=== PATIENT | female | born 1960 | race Caucasian/White ===

== ENCOUNTER 2019-10-21 07:03 | Inpatient (IN) | payer OTHER ==
[2019-10-21] MEDS: Acetaminophen TAB* 325 MG PO PRN (15:39)
[2019-10-21] MEDS ORDERED: Calcium Carbonate CHEW TAB* 500 MG (TUMS) PO PRN (19:04)
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
[2019-10-21] MEDS: Docusate CAP* 100 MG PO SCH (21:39)
[2019-10-21] MEDS: Enoxaparin(*) 30 MG/0.3 ML SYR SUBCUT SCH (21:39)
[2019-10-21] MEDS: oxyCODONE TAB* 5 MG TAB PO PRN (21:41)
[2019-10-22 05:39] LABS: ABS Eosinophils 0.2 10^3/ul (0-0.6); ABS Lymphocytes 0.9 10^3/ul (1.0-4.8); ABS Monocytes 0.3 10^3/ul (0-0.8); ABS Neutrophils 2.6 10^3/ul (1.5-7.7); Hematocrit 24 % (35-47); Hemoglobin 8.5 g/dL (12.0-16.0); Lymphocyte % 22.6 %; Mean Corpuscular HGB Conc 35 g/dL (31-36); Mean Corpuscular Hemoglobin 32 pg (27-31); Mean Corpuscular Volume 92 fL (80-97); Mean Platelet Volume 9.2 fL (7.4-10.4); Nucleated Red Blood Cells % 0.1; Platelet Count 116 10^3/uL (150-450); Red Blood Count 2.65 10^6 /uL (3.70-4.87); Red Cell Distribution Width 15 % (10-15); White Blood Count 4.1 10^3/uL (3.5-10.8)
[2019-10-22] MEDS: Levothyroxine TAB* 25 MCG TAB PO SCH (05:39)
[2019-10-22 06:00] LABS: Albumin 3.2 g/dL (3.2-5.2); Albumin/Globulin Ratio 1.1 (1-3); BUN/Creatinine Ratio 26.8 (8-20); Calcium 8.3 mg/dL (8.6-10.3); EGFR African American 133.6 (>60); EGFR Non-African American 110.4 (>60); Globulin 2.8 g/dL (2-4); Potassium 3.8 mmol/L (3.5-5.0)
[2019-10-22] MEDS: Acetaminophen TAB* 325 MG PO PRN ×2 (07:50→15:20)
[2019-10-22] MEDS: Docusate CAP* 100 MG PO SCH ×2 (07:51→20:08)
[2019-10-22] MEDS: Enoxaparin(*) 30 MG/0.3 ML SYR SUBCUT SCH ×2 (07:51→20:08)
[2019-10-22] MEDS ORDERED: Influenza VAC *QUAD* 2019-20* 0.5 ML SYRINGE IM ONE (09:00)
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
--- NOTE | 2019-10-22 12:26 | PMRUTEAM ---
PMRU: Team Meeting Current Status: Physical Therapy: Current Status Current Rolling Status Not attempted Current Supine <-> Sit Status Partial/Moderate Current Sit <-> Stand Status Partial/Moderate Current Bed <-> Chair Status Dependent Transfer/Bed Mobility Rolling Walker,Slide Board Recommended Devices Current Picking Up Object Dependent Status Current Car Transfer Status Not attempted due to Current Ambulation Assistance Dependent Status Ambulation Assistive Device Rolling Walker Current Ambulation Distance 5' Ambulation Comment ModAx2 Current Wheelchair Propulsion Dependent Ability Status Wheelchair Distance (ft) 50' Current Stair Climbing Status Not attempted Current Curb Assistance Status Dependent Curb Assistive Devices Rolling Walker Objective Comments Pt's present throughout session. Occupational Therapy: Current Status Current Upper Body Dressing Setup or Clean-up Assist Status Current Lower Body Dressing Total assist Status Current Footwear Status Total assist Current Bathing Status Not attempted Current Grooming Status Setup or Clean-up Assist Current Toileting Status Total assist Current Toilet Transfer Status Total assist Current Eating Status Setup or Clean-up Assist Instrumental ADL Spouse available to assist with IADLs. Nursing: Current Status Skin Deviations [bilateral Other lower pelvis] Skin Deviations [Generalized] Bruise Skin Deviation Description [ pin site bilateral lower pelvis] Skin Deviation Description [ bilateral arms , proximal thighs and pelvis Generalized] Rec Therapy: Current Status Summary of Assessment and Pt was sitting up in bed when meeting with staff. Clinical Impression Pt was open and engaged in conversation about leisure interests and involvement. Pt, with assistance from her , was able to identify several leisure interests. Pt is aware of services and is open to pet therapy and continued leisure visits. Pt also identified interest in independent leisure materials such as books and coloring materials, which will be provided to her. Treatment Goals Pt will engage in leisure activities while on the unit as tolerated. Treatment Plan Provide recreation therapy services and encourage involvement. Social Work: Current Status Discharge Plan Return home with home care svs and family support Potential for Family Training pt's family is involved and supportive Anticipated Discharge Home Destination Anticipated Discharge needs a ramp Destination Comment Discharge With home care svs and family support Goals: Physical Therapy: Goals Goals to Be Accomplished in ( 21-24 Days) Goal: Rolling Assistance Independent Goal Supine <-> Sit Status Independent Goal Sit <-> Stand Status Supervision/Touching Goal Bed <-> Chair Status Supervision/Touching Transfer/Bed Mobility Rolling Walker,EZ Stand,Slide Board or least restrictive device Recommended Devices Goal: Picking Up Object Supervision/Touching Goal: Car Transfer Status Supervision/Touching Goal: Ambulation Assistance Supervision/Touching Ambulation Assistive Devices Standard Walker Ambulation Distance (ft) 150' Goal: Wheelchair Propulsion Independent Ability Wheelchair Distance (ft) 150' Goal: Stairs Assistance Supervision/Touching Stairs Recommended Devices Two Rails Number of Stairs 4, Ramp recommend Goal: Curb Assistance Supervision/Touching Goal: Home Exercise Program Independent Assistance Occupational Therapy: Goals Goals to be Completed in (Days 30 ) Goal Upper Body Dressing Setup or Clean-up Assist Routine Goal Lower Body Dressing Setup or Clean-up Assist Routine Goal Footwear Status Setup or Clean-up Assist Goal Bathing Routine (OT) Supervision/Touching Goal Grooming Routine Setup or Clean-up Assist Goal Toilet Hygiene and Setup or Clean-up Assist Clothing Management Routine Goal Toilet Transfer Routine Setup or Clean-up Assist Goal Functional Transfers for Setup or Clean-up Assist ADL Goal Feeding Routine Independent Social Work: Goals Discharge Plan Return home with home care svs and family support Potential for Family Training pt's family is involved and supportive Anticipated Discharge Home Destination Anticipated Discharge needs a ramp Destination Comment Discharge With home care svs and family support Care Plan: Care Plan DVT Prophylaxis- Improve/Maintain Start: 10/21/19 13:12 Freq: [id number] Status: Active Target: 11/04/19 Protocol: Activity Type Activity Date Activity User E-Sign Co-Sign Detail Recorded Client Recorded Date Recorded By Document 10/22/19 07:00 [id number] 10/22/19 08:54 [id number] 10/22/19 07:00 PMRU Outcome: DVT Prophylaxis Current DVT Outcome/Goals Remains Free of DVT Complies with DVT Prophylaxis /Treatment Demonstrates Knowledge of DVT Prevention/ Treatment TEDS Stockings on Every AM, Off at HS Progression Toward Outcome/Goals Progressing Discharge Planning - Improve/Maintain Start: 10/21/19 13:12 Freq: DAILY@[id number] Status: Active Target: 11/04/19 Protocol: Activity Type Activity Date Activity User E-Sign Co-Sign Detail Recorded Client Recorded Date Recorded By Document 10/22/19 07:00 [id number] 10/22/19 08:54 [id number] 10/22/19 07:00 PMRU Outcome: Discharge Planning Update Patient Family Yes Current Discharge Planning Outcome/Goals Demonstrates Understanding of Discharge Plan Homecare Referral - See Comment Progression Toward Outcome/Goals Progressing Education-Improve/Maintain Start: 10/21/19 13:12 Freq: DAILY@[id number],1900 Status: Active Target: 11/04/19 Protocol: Activity Type Activity Date Activity User E-Sign Co-Sign Detail Recorded Client Recorded Date Recorded By Document 10/22/19 07:00 [id number] 10/22/19 08:54 [id number] 10/22/19 07:00 PMRU Outcome: Education Current Education Outcome/Goals Demonstrate/ Verbalize Understanding of Written Discharge Instructions Demonstrates Skills Encourage Questions Progression Toward Outcome/Goals Progressing /GI-Improve/Maintain Start: 10/21/19 13:12 Freq: [id number] Status: Active Target: 11/04/19 Protocol: Activity Type Activity Date Activity User E-Sign Co-Sign Detail Recorded Client Recorded Date Recorded By Document 10/22/19 07:00 [id number] 10/22/19 08:54 [id number] 10/22/19 07:00 PMRU Outcome: Genitourinary/ Gastrointestinal Current Gastrointestinal Outcome/Goals Maintain/ Achieve Bowel Regularity in Accordance with Pt's Baseline Remain Free of Emesis Prevent Constipation Bowel Regularity at Home Laxatives as Ordered Progression Toward Outcome/Goals Progressing Current Genitourinary Outcome/Goals Maintain/ Achieve Adequate Urinary Output Remain Free of Hospital- Acquired UTI Progression Toward Outcome/Goals Progressing Medication Administration Start: 10/21/19 13:12 Freq: DAILY@[id number] Status: Active Target: 11/04/19 Protocol: Activity Type Activity Date Activity User E-Sign Co-Sign Detail Recorded Client Recorded Date Recorded By Document 10/22/19 07:00 [id number] 10/22/19 08:54 [id number] 10/22/19 07:00 PMRU Outcome: Medication Administration Assess Patient Knowledge/Teach Med Yes Education for all Meds Current Manager Reporting Outcome/Goals Patient Independent with Medication Administration at Home Demonstrates Understanding Progression Towards Outcome/Goals Progressing Is Patient Going Home on Lovenox? No Mobility- Improve/Maintain Start: 10/21/19 16:28 Freq: DAILY@[id number],1900 Status: Active Target: 10/22/19 Protocol: Activity Type Activity Date Activity User E-Sign Co-Sign Detail Recorded Client Recorded Date Recorded By Document 10/21/19 16:28 [id number] 10/21/19 16:37 [id number] 10/21/19 16:28 PMRU Outcome: Mobility Physical Therapy Evaluation and Yes Treatment Activity OOB with Assistance Yes WBAT Yes: RLE NWB Yes: LLE TTWB No Device Yes Assistance Yes Patient to be seen 5x/wk for 60-120 min/ Therex day for: Mobility Training Gait Training W/C Mobility Balance Other Other Therapy Comment Discharge training and discharge planning Current Mobility Outcome/Goals Maintain/ Achieve Baseline Mobility Status Improve Mobility Status Demonstrates Proper Use of Assistive Devices Free from Complications of Immobility Progression Toward Outcome/Goals Goal Initiation Bed Mobility Yes: Independent Transfers Yes: Supervision with LRD Gait x ft Yes: 150' with RW, supervision W/C Mobility x ft Yes: 150' independent Up/Down Stairs Yes: ramp to be installed With HEP Yes: independent Pain/Comfort- Improve/Maintain Start: 10/21/19 13:12 Freq: DAILY@ Status: Active Target: 11/04/19 Protocol: Activity Type Activity Date Activity User E-Sign Co-Sign Detail Recorded Client Recorded Date Recorded By Document 10/22/19 07:00 [id number] 10/22/19 08:54 [id number] 10/22/19 07:00 PMRU Outcome: Pain/Comfort Current Pain/Comfort Outcome/Goals Demonstrates Knowledge and Use of Available Comfort Measures Achieves Acceptable Comfort/Pain Level as Determined by Patient/Condit Maintain Comfort Level Allowing Patient to Fully Participate in Rehab Progression Toward Outcome/Goals Progressing Outcome/Goals Met Comment Pt declined pain medication Rec Therapy- Improve/Maintain Start: 10/21/19 15:48 Freq: DAILY@[id number] Status: Active Target: 10/26/19 Protocol: Activity Type Activity Date Activity User E-Sign Co-Sign Detail Recorded Client Recorded Date Recorded By Document 10/21/19 15:49 [id number] 10/21/19 15:49 [id number] 10/21/19 15:49 PMRU Outcome: Recreation Therapy Current Rec Ther Outcome/Goals Complete Rec Therapy Assessment Meet with Patient Regularly for Support Encourage Leisure Involvement Progression Toward Outcome/Goals Goal Initiation Safety- Improve/Maintain Start: 10/21/19 12:05 Freq: DAILY@ Status: Active Target: 11/04/19 Protocol: Activity Type Activity Date Activity User E-Sign Co-Sign Detail Recorded Client Recorded Date Recorded By Document 10/22/19 07:00 [id number] 10/22/19 08:54 [id number] 10/22/19 07:00 PMRU Outcome: Safety Current Safety Outcome/Goals Remain Free of Injury or Harm Cooperates with Safety Measures for Least Restrictive Environment Prevent Falls/ Injury Progression Toward Outcome/Goals Progressing Skin- Improve/Maintain Start: 10/21/19 13:12 Freq: DAILY@ Status: Active Target: 11/04/19 Protocol: Activity Type Activity Date Activity User E-Sign Co-Sign Detail Recorded Client Recorded Date Recorded By Document 10/22/19 07:00 [id number] 10/22/19 08:54 [id number] 10/22/19 07:00 PMRU Outcome: Skin Skin Risk Level No Risk Current Skin Outcome/Goals Maintain/ Improve Skin Integrity Free from Pressure Injury Surgical Incisions Healing Progression Toward Outcome/Goals Progressing - Interdisciplinary Staff Present It Applications Manager/Social Work Staff Present: ALVIN Linder OT Staff Present: Vonnie Jarrett PT Staff Present: Daria Hernandez Medicine Note: Length of Stay: [3 weeks] Anticipated Discharge Destination: Home Tentative Discharge Date: [11/12/2019] Discharged to: [home]
[2019-10-22] MEDS: oxyCODONE TAB* 5 MG TAB PO PRN (21:42)
[2019-10-22] MEDS: Methocarbamol TAB* 500 MG PO PRN (23:47)
[2019-10-23] MEDS: Levothyroxine TAB* 25 MCG TAB PO SCH (04:25)
[2019-10-23 05:13] LABS: ABS Eosinophils 0.2 10^3/ul (0-0.6); ABS Lymphocytes 0.9 10^3/ul (1.0-4.8); ABS Monocytes 0.4 10^3/ul (0-0.8); ABS Neutrophils 2.9 10^3/ul (1.5-7.7); Eosinophil % 3.9 %; Hematocrit 24 % (35-47); Hemoglobin 8.1 g/dL (12.0-16.0); Mean Corpuscular HGB Conc 34 g/dL (31-36); Mean Corpuscular Hemoglobin 31 pg (27-31); Mean Corpuscular Volume 93 fL (80-97); Mean Platelet Volume 9.3 fL (7.4-10.4); Nucleated Red Blood Cells % 0.1; Platelet Count 134 10^3/uL (150-450); Red Cell Distribution Width 15 % (10-15); White Blood Count 4.4 10^3/uL (3.5-10.8)
[2019-10-23] MEDS: Docusate CAP* 100 MG PO SCH ×2 (07:57→20:22)
[2019-10-23] MEDS: Enoxaparin(*) 30 MG/0.3 ML SYR SUBCUT SCH ×2 (07:57→20:23)
[2019-10-23] MEDS: Acetaminophen TAB* 325 MG PO PRN ×3 (07:57→20:40)
[2019-10-23] MEDS: Methocarbamol TAB* 500 MG PO PRN ×3 (07:59→20:40)
[2019-10-23] MEDS ORDERED: Ondansetron ODT TAB* 4 MG SL PRN (09:16)
--- NOTE | 2019-10-23 09:16 | PN ---
Progress Note Date of Service: 10/23/19 Note: STEPHANIE LIN was visited. Nursing and therapy notes read and reviewed. No chest pain, shortness of breath or abdominal pain. Some nausea yesterday. Current Medications: Active Medications Generic Name Dose Route Start Last Admin Trade Name Freq PRN Reason Stop Dose Admin Acetaminophen 650 mg 10/21/19 12:06 10/23/19 07:57 Tylenol Tab* PO 650 mg Q6H PRN Administration MILD PAIN or TEMP > 100.4 Calcium Carbonate 500 mg 10/21/19 19:04 10/21/19 19:17 Tums* PO 500 mg Q4H PRN Administration INDIGESTION Docusate Sodium 100 mg 10/21/19 21:00 10/23/19 07:57 Colace Cap* PO 100 mg BID ASHLEY Administration Enoxaparin Sodium 30 mg 10/21/19 21:00 10/23/19 07:57 Lovenox(*) SUBCUT 30 mg Q12H ASHLEY Administration Levothyroxine Sodium 12.5 mcg 10/22/19 06:00 10/23/19 04:25 Synthroid Tab* PO 12.5 mcg DAILY@0600 ASHLEY Administration Magnesium Hydroxide 30 ml 10/21/19 12:06 Milk Of Magnesia Liq* PO Q6H PRN CONSTIPATION Methocarbamol 750 mg 10/22/19 10:48 10/23/19 07:59 Robaxin Tab* PO 750 mg QID PRN Administration SPASMS - MUSCLE Oxycodone HCl 5 mg 10/21/19 12:10 Roxycodone Tab* PO Q4H PRN PAIN - MODERATE Oxycodone HCl 10 mg 10/21/19 12:11 10/22/19 21:42 Roxycodone Tab* PO 10 mg Q4H PRN Administration PAIN - SEVERE Senna 2 tab 10/21/19 12:06 Senokot 8.6 Mg Tab* PO BEDTIME PRN CONSTIPATION Vital Signs: Vital Signs Temp Pulse Resp BP Pulse Ox 98.7 F 79 12 98/56 96 10/23/19 04:30 10/23/19 04:30 10/23/19 07:59 10/23/19 04:30 10/23/19 04:30 Lab Results: Laboratory Results - last 24 hr 10/23/19 04:22 WBC 4.4 RBC 2.60 L Hgb 8.1 L Hct 24 L MCV 93 MCH 31 MCHC 34 RDW 15 Plt Count 134 L MPV 9.3 Neut % (Auto) 66.0 Lymph % (Auto) 20.0 Pepin % (Auto) 9.7 Eos % (Auto) 3.9 Baso % (Auto) 0.4 Absolute Neuts (auto) 2.9 Absolute Lymphs (auto) 0.9 L Absolute Monos (auto) 0.4 Absolute Eos (auto) 0.2 Absolute Basos (auto) 0.0 Absolute Nucleated RBC 0.0 Nucleated RBC % 0.1 Exam: GEN: no acute distress. alert and appropriate. LUNG: clear to auscultation bilaterally. CV: regular rate and rhythm. ABD: + bowel sounds, soft, non-tender, non-distended. EXT: No edema SKIN: External fixator across pelvis. Pin and pin sites clean and intact. Dressing had scan/minimal serosanguinous staining. NEURO: Sensation intact bilateral LE. Motor 5/5 bilateral toes/ankles. Testing limited in rest of legs due to pain and restrictions, but demonstrates some right knee flex/ext and hip flex. Assessment/Plan: 59yo woman with Left acetabulum, left sacral and bilateral pubic rami fractures. #Pelvic and left hip fracture: External fixator. Pin care. NWB LLE. WBAT RLE. f/ u with Dr. Wallace at [facility] on 11/02. I spoke to Dr. Wallace 10/22/2019 who confirmed that she can take a shower and even get in a chlorinated pool, but no hot tub or bathtub. PT/OT. #Analgesia: tylenol and oxycodone prn. methocarbamol prn for spasms. #Nausea: zofran prn #DVT ppx: lovenox #Acute post-op anemia and thrombocytopenia: s/p 1u pRBCs on acute service 2019 when H/H 6.9/21.5 and platelets 82. Hemoglobin 8.4->8.1 overnight may be in normal variance day to day. Not a precipitous drop. Recheck on Friday. #Low normal blood pressure: may be due to pain medications or dehydration. I gave parameters to notify MD. Encourage po fluids. #Hypothyroidism: levothyroxine #Advanced directives: full code. #Estimated LOS: 11/12/2019 10/23/19 09:12
[2019-10-23] MEDS: Magnesium Hydroxide LIQ* 30 ML UDC PO PRN (18:11)
[2019-10-24] MEDS: oxyCODONE TAB* 5 MG TAB PO PRN ×2 (01:07→22:19)
[2019-10-24] MEDS: Levothyroxine TAB* 25 MCG TAB PO SCH (05:33)
[2019-10-24] MEDS: Docusate CAP* 100 MG PO SCH ×2 (08:13→21:36)
[2019-10-24] MEDS: Acetaminophen TAB* 325 MG PO PRN ×2 (08:13→14:30)
[2019-10-24] MEDS: Methocarbamol TAB* 500 MG PO PRN ×3 (08:14→18:39)
[2019-10-24] MEDS: Enoxaparin(*) 30 MG/0.3 ML SYR SUBCUT SCH ×2 (08:15→21:36)
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
[2019-10-25 04:53] LABS: ABS Eosinophils 0.2 10^3/ul (0-0.6); ABS Lymphocytes 1.1 10^3/ul (1.0-4.8); ABS Monocytes 0.4 10^3/ul (0-0.8); ABS Neutrophils 2.3 10^3/ul (1.5-7.7); Eosinophil % 4.8 %; Hematocrit 24 % (35-47); Hemoglobin 8.2 g/dL (12.0-16.0); Lymphocyte % 26.6 %; Mean Corpuscular HGB Conc 34 g/dL (31-36); Mean Corpuscular Hemoglobin 31 pg (27-31); Mean Corpuscular Volume 93 fL (80-97); Mean Platelet Volume 8.7 fL (7.4-10.4); Nucleated Red Blood Cells % 0.1; Platelet Count 199 10^3/uL (150-450); Red Blood Count 2.62 10^6 /uL (3.70-4.87); Red Cell Distribution Width 16 % (10-15)
[2019-10-25] MEDS: Methocarbamol TAB* 500 MG PO PRN ×2 (05:37→11:34)
[2019-10-25] MEDS: Acetaminophen TAB* 325 MG PO PRN ×2 (05:37→11:35)
[2019-10-25] MEDS: Levothyroxine TAB* 25 MCG TAB PO SCH (05:38)
[2019-10-25] MEDS: Docusate CAP* 100 MG PO SCH ×2 (09:12→20:39)
[2019-10-25] MEDS: Enoxaparin(*) 30 MG/0.3 ML SYR SUBCUT SCH ×2 (09:13→20:40)
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
[2019-10-25] MEDS: oxyCODONE TAB* 5 MG TAB PO PRN (20:43)
[2019-10-26] MEDS: oxyCODONE TAB* 5 MG TAB PO PRN ×3 (02:36→20:52)
[2019-10-26] MEDS: Levothyroxine TAB* 25 MCG TAB PO SCH (06:03)
[2019-10-26] MEDS: Docusate CAP* 100 MG PO SCH ×2 (09:02→20:50)
[2019-10-26] MEDS: Enoxaparin(*) 30 MG/0.3 ML SYR SUBCUT SCH ×2 (09:04→20:59)
[2019-10-26] MEDS: Methocarbamol TAB* 500 MG PO PRN ×2 (09:04→16:57)
[2019-10-26] MEDS: Acetaminophen TAB* 325 MG PO PRN (09:05)
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
[2019-10-27] MEDS: Levothyroxine TAB* 25 MCG TAB PO SCH (05:35)
[2019-10-27] MEDS: Docusate CAP* 100 MG PO SCH ×2 (08:27→20:50)
[2019-10-27] MEDS: Enoxaparin(*) 30 MG/0.3 ML SYR SUBCUT SCH ×2 (08:27→20:53)
[2019-10-27] MEDS: Acetaminophen TAB* 325 MG PO PRN (08:27)
[2019-10-27] MEDS: Methocarbamol TAB* 500 MG PO PRN ×2 (08:29→16:16)
--- NOTE | 2019-10-27 20:04 | PN ---
Progress Note Date of Service: 10/27/19 Note: STEPHANIE LIN was visited. Therapy notes read and reviewed. She has no complaints today other than pain in her legs and pelvis. Current Medications: Active Medications Generic Name Dose Route Start Last Admin Trade Name Freq PRN Reason Stop Dose Admin Acetaminophen 650 mg 10/21/19 12:06 10/27/19 08:27 Tylenol Tab* PO 650 mg Q6H PRN Administration MILD PAIN or TEMP > 100.4 Calcium Carbonate 500 mg 10/21/19 19:04 10/21/19 19:17 Tums* PO 500 mg Q4H PRN Administration INDIGESTION Docusate Sodium 100 mg 10/21/19 21:00 10/27/19 08:27 Colace Cap* PO 100 mg BID ASHLEY Administration Enoxaparin Sodium 30 mg 10/21/19 21:00 10/27/19 08:27 Lovenox(*) SUBCUT 30 mg Q12H ASHLEY Administration Levothyroxine Sodium 12.5 mcg 10/22/19 06:00 10/27/19 05:35 Synthroid Tab* PO 12.5 mcg DAILY@0600 ASHLEY Administration Magnesium Hydroxide 30 ml 10/21/19 12:06 10/23/19 18:11 Milk Of Magnesia Liq* PO 30 ml Q6H PRN Administration CONSTIPATION Methocarbamol 750 mg 10/22/19 10:48 10/27/19 16:16 Robaxin Tab* PO 750 mg QID PRN Administration SPASMS - MUSCLE Ondansetron HCl 4 mg 10/23/19 09:16 Zofran Odt Tab* SL Q6H PRN NAUSEA/VOMITING Oxycodone HCl 5 mg 10/21/19 12:10 10/26/19 14:14 Roxycodone Tab* PO 5 mg Q4H PRN Administration PAIN - MODERATE Oxycodone HCl 10 mg 10/21/19 12:11 10/26/19 20:52 Roxycodone Tab* PO 10 mg Q4H PRN Administration PAIN - SEVERE Senna 2 tab 10/21/19 12:06 Senokot 8.6 Mg Tab* PO BEDTIME PRN CONSTIPATION Vital Signs: Vital Signs Temp Pulse Resp BP Pulse Ox 99.0 F 85 18 113/59 96 10/27/19 16:11 10/27/19 16:11 10/27/19 18:18 10/27/19 16:11 10/27/19 18:19 Exam: GENERAL: no acute distress. alert and appropriate. LUNGS: clear to auscultation bilaterally. HEART: regular rate and rhythm. ABDOMEN: + BS, soft, non-tender, non-distended. EXTREMITIES: No edema SKIN: External fixator across pelvis. Pin and pin sites clean and intact. Dressing had scan/minimal serosanguinous staining. NEUROLOGIC: Sensation intact bilateral LE. Motor 5/5 bilateral toes/ankles. RLE seems fine Assessment/Plan: 59yo woman with Left acetabulum, left sacral and bilateral pubic rami fractures. 1. Pelvic and left acetabular and sacrum fractures: External fixator. Pin care. NWB LLE. WBAT RLE. f/u with Dr. Wallace at [facility] on 11/02. PT/OT. 2. Analgesia: tylenol and oxycodone prn. methocarbamol prn for spasms. 3. Nausea: zofran prn. Getting better 4. DVT prophylaxis: lovenox 5. Acute post-op anemia and thrombocytopenia: s/p 1u pRBCs on acute service 2019. Hb stable. Platelets 199K, normal 6. Hypothyroidism: levothyroxine 7. Advanced directives: full code. 8. Estimated LOS: 11/12/2019 10/27/19 20:04
[2019-10-27] MEDS: oxyCODONE TAB* 5 MG TAB PO PRN (20:50)
[2019-10-27] MEDS: Senna TAB 8.6 mg* TAB PO PRN (20:53)
[2019-10-28] MEDS: Levothyroxine TAB* 25 MCG TAB PO SCH (06:13)
[2019-10-28] MEDS: Docusate CAP* 100 MG PO SCH ×2 (08:58→20:21)
[2019-10-28] MEDS: Enoxaparin(*) 30 MG/0.3 ML SYR SUBCUT SCH ×2 (08:58→20:21)
[2019-10-28] MEDS: Acetaminophen TAB* 325 MG PO PRN (08:59)
[2019-10-28] MEDS: Methocarbamol TAB* 500 MG PO PRN ×2 (09:04→20:22)
--- NOTE | 2019-10-28 18:11 | PN ---
Progress Note Date of Service: 10/28/19 Note: STEPHANIE LIN was visited. Therapy notes read and reviewed. She was able to hop 8 steps today and feels her standing balance is getting better. Had a BM today Current Medications: Active Medications Generic Name Dose Route Start Last Admin Trade Name Freq PRN Reason Stop Dose Admin Acetaminophen 650 mg 10/21/19 12:06 10/28/19 08:59 Tylenol Tab* PO 650 mg Q6H PRN Administration MILD PAIN or TEMP > 100.4 Calcium Carbonate 500 mg 10/21/19 19:04 10/21/19 19:17 Tums* PO 500 mg Q4H PRN Administration INDIGESTION Docusate Sodium 100 mg 10/21/19 21:00 10/28/19 08:58 Colace Cap* PO 100 mg BID ASHLEY Administration Enoxaparin Sodium 30 mg 10/21/19 21:00 10/28/19 08:58 Lovenox(*) SUBCUT 30 mg Q12H ASHLEY Administration Levothyroxine Sodium 12.5 mcg 10/22/19 06:00 10/28/19 06:13 Synthroid Tab* PO 12.5 mcg DAILY@0600 ASHLEY Administration Magnesium Hydroxide 30 ml 10/21/19 12:06 10/23/19 18:11 Milk Of Magnesia Liq* PO 30 ml Q6H PRN Administration CONSTIPATION Methocarbamol 750 mg 10/22/19 10:48 10/28/19 09:04 Robaxin Tab* PO 750 mg QID PRN Administration SPASMS - MUSCLE Ondansetron HCl 4 mg 10/23/19 09:16 Zofran Odt Tab* SL Q6H PRN NAUSEA/VOMITING Oxycodone HCl 5 mg 10/28/19 14:23 Roxycodone Tab* PO Q4H PRN PAIN - MODERATE Oxycodone HCl 10 mg 10/28/19 14:23 Roxycodone Tab* PO Q4H PRN PAIN - SEVERE Senna 2 tab 10/21/19 12:06 10/27/19 20:53 Senokot 8.6 Mg Tab* PO 2 tab BEDTIME PRN Administration CONSTIPATION Vital Signs: Vital Signs Temp Pulse Resp BP Pulse Ox 98.7 F 82 16 95/56 100 10/28/19 16:00 10/28/19 16:00 10/28/19 16:10 10/28/19 16:00 10/28/19 16:00 Exam: GENERAL: no acute distress. alert and appropriate. LUNGS: clear to auscultation bilaterally. HEART: regular rate and rhythm. ABDOMEN: + BS, soft, non-tender, non-distended. EXTREMITIES: No edema SKIN: External fixator across pelvis. Pin and pin sites clean and intact. Dressing had scan/minimal serosanguinous staining. NEUROLOGIC: Sensation intact bilateral LE. Motor 5/5 bilateral toes/ankles. RLE seems fine Assessment/Plan: 59yo woman with Left acetabulum, left sacral and bilateral pubic rami fractures. 1. Pelvic and left acetabular and sacrum fractures: External fixator. Pin care. NWB LLE. WBAT RLE. f/u with Dr. Wallace at [facility] on 11/02. PT/OT. 2. Analgesia: tylenol and oxycodone prn. methocarbamol prn for spasms. 3. Nausea: zofran prn. Getting better 4. DVT prophylaxis: lovenox 5. Acute post-op anemia and thrombocytopenia: s/p 1u pRBCs on acute service 2019. Hb stable. Platelets 199K, normal 6. Hypothyroidism: levothyroxine 7. Advanced directives: full code. 8. Estimated LOS: 11/12/2019 10/28/19 18:11
[2019-10-28] MEDS: oxyCODONE TAB* 5 MG TAB PO PRN (22:02)
[2019-10-29 04:28] LABS: ABS Eosinophils 0.2 10^3/ul (0-0.6); ABS Lymphocytes 1.6 10^3/ul (1.0-4.8); ABS Monocytes 0.4 10^3/ul (0-0.8); ABS Neutrophils 3.1 10^3/ul (1.5-7.7); Eosinophil % 4.2 %; Hematocrit 24 % (35-47); Hemoglobin 8.2 g/dL (12.0-16.0); Lymphocyte % 29.8 %; Mean Corpuscular HGB Conc 34 g/dL (31-36); Mean Corpuscular Hemoglobin 32 pg (27-31); Mean Corpuscular Volume 93 fL (80-97); Mean Platelet Volume 8.1 fL (7.4-10.4); Nucleated Red Blood Cells % 0.1; Platelet Count 311 10^3/uL (150-450); Red Cell Distribution Width 16 % (10-15); White Blood Count 5.3 10^3/uL (3.5-10.8)
[2019-10-29 04:38] LABS: Albumin/Globulin Ratio 0.9 (1-3); BUN/Creatinine Ratio 16.1 (8-20); Calcium 8.5 mg/dL (8.6-10.3); EGFR African American 118.8 (>60); EGFR Non-African American 98.2 (>60); Globulin 3.2 g/dL (2-4); Total Bilirubin 0.7 mg/dL (0.2-1.0); Total Protein 6.2 g/dL (6.4-8.9)
[2019-10-29] MEDS: Levothyroxine TAB* 25 MCG TAB PO SCH (06:33)
[2019-10-29] MEDS: Acetaminophen TAB* 325 MG PO PRN ×2 (08:00→21:49)
[2019-10-29] MEDS: Methocarbamol TAB* 500 MG PO PRN ×3 (08:01→21:50)
[2019-10-29] MEDS: Docusate CAP* 100 MG PO SCH ×2 (09:20→21:49)
[2019-10-29] MEDS: Enoxaparin(*) 30 MG/0.3 ML SYR SUBCUT SCH ×2 (09:20→21:50)
--- NOTE | 2019-10-29 09:21 | PN ---
Progress Note Date of Service: 10/29/19 Note: STEPHANIE LIN was visited. Nursing and therapy notes read and reviewed. No chest pain, shortness of breath or abdominal pain. As she has been working on short distance ambulation with PT she has had more aching in her right hip area. She is thinking about trying to wean off night oxycodone. Current Medications: Active Medications Generic Name Dose Route Start Last Admin Trade Name Freq PRN Reason Stop Dose Admin Acetaminophen 650 mg 10/21/19 12:06 10/29/19 08:00 Tylenol Tab* PO 650 mg Q6H PRN Administration MILD PAIN or TEMP > 100.4 Calcium Carbonate 500 mg 10/21/19 19:04 10/21/19 19:17 Tums* PO 500 mg Q4H PRN Administration INDIGESTION Docusate Sodium 100 mg 10/21/19 21:00 10/28/19 20:21 Colace Cap* PO 100 mg BID ASHLEY Administration Enoxaparin Sodium 30 mg 10/21/19 21:00 10/28/19 20:21 Lovenox(*) SUBCUT 30 mg Q12H ASHLEY Administration Levothyroxine Sodium 12.5 mcg 10/22/19 06:00 10/29/19 06:33 Synthroid Tab* PO 12.5 mcg DAILY@0600 ASHLEY Administration Magnesium Hydroxide 30 ml 10/21/19 12:06 10/23/19 18:11 Milk Of Magnesia Liq* PO 30 ml Q6H PRN Administration CONSTIPATION Methocarbamol 750 mg 10/22/19 10:48 10/29/19 08:01 Robaxin Tab* PO 750 mg QID PRN Administration SPASMS - MUSCLE Ondansetron HCl 4 mg 10/23/19 09:16 Zofran Odt Tab* SL Q6H PRN NAUSEA/VOMITING Oxycodone HCl 5 mg 10/28/19 14:23 Roxycodone Tab* PO Q4H PRN PAIN - MODERATE Oxycodone HCl 10 mg 10/28/19 14:23 10/28/19 22:02 Roxycodone Tab* PO 10 mg Q4H PRN Administration PAIN - SEVERE Senna 2 tab 10/21/19 12:06 10/27/19 20:53 Senokot 8.6 Mg Tab* PO 2 tab BEDTIME PRN Administration CONSTIPATION Vital Signs: Vital Signs Temp Pulse Resp BP Pulse Ox 98.4 F 70 12 101/54 95 10/29/19 04:20 10/29/19 04:20 10/29/19 08:01 10/29/19 05:10 10/29/19 04:20 Lab Results: Laboratory Results - last 24 hr 10/29/19 10/29/19 04:14 04:14 WBC 5.3 RBC 2.60 L Hgb 8.2 L Hct 24 L MCV 93 MCH 32 H MCHC 34 RDW 16 H Plt Count 311 MPV 8.1 Neut % (Auto) 57.8 Lymph % (Auto) 29.8 Ware % (Auto) 7.8 Eos % (Auto) 4.2 Baso % (Auto) 0.4 Absolute Neuts (auto) 3.1 Absolute Lymphs (auto) 1.6 Absolute Monos (auto) 0.4 Absolute Eos (auto) 0.2 Absolute Basos (auto) 0.0 Absolute Nucleated RBC 0.0 Nucleated RBC % 0.1 Sodium 136 Potassium 4.0 Chloride 106 Carbon Dioxide 24 Anion Gap 6 BUN 10 Creatinine 0.62 Est GFR ( Amer) 118.8 Est GFR (Non-Af Amer) 98.2 BUN/Creatinine Ratio 16.1 Glucose 95 Calcium 8.5 L Total Bilirubin 0.70 AST 13 ALT 11 Alkaline Phosphatase 99 Total Protein 6.2 L Albumin 3.0 L Globulin 3.2 Albumin/Globulin Ratio 0.9 L Exam: GENERAL: no acute distress. alert and appropriate. LUNGS: clear to auscultation bilaterally. HEART: regular rate and rhythm. ABDOMEN: + BS, soft, non-tender, non-distended. EXTREMITIES: No edema SKIN: External fixator across pelvis. Pin sites clean and intact. [place] to left hip intact. NEUROLOGIC: Sensation intact bilateral LE. Motor 5/5 bilateral toes/ankles. RLE knee and hip motor testing limited by pain. Assessment/Plan: 59yo woman with Left acetabulum, left sacral and bilateral pubic rami fractures. 1. Pelvic and left acetabular and sacrum fractures: External fixator. Pin care. NWB LLE. WBAT RLE. f/u with Dr. Wallace at [facility] on 11/02. PT/OT. 2. Analgesia: tylenol and oxycodone prn. methocarbamol prn for spasms. 3. Nausea: zofran prn. 4. DVT prophylaxis: lovenox. Eventually will need to learn self administration. 5. Acute post-op anemia and thrombocytopenia: thrombocytopenia reasolvd. s/p 1u pRBCs on acute service 10/19/2019. Hb stable. 6. Hypothyroidism: levothyroxine 7. Advanced directives: full code. 8. Estimated LOS: 11/12/2019 10/29/19 09:21
[2019-10-30] MEDS: oxyCODONE TAB* 5 MG TAB PO PRN ×2 (02:32→22:31)
[2019-10-30] MEDS: Levothyroxine TAB* 25 MCG TAB PO SCH (05:35)
[2019-10-30] MEDS: Enoxaparin(*) 30 MG/0.3 ML SYR SUBCUT SCH ×2 (08:18→22:33)
[2019-10-30] MEDS: Acetaminophen TAB* 325 MG PO PRN ×2 (08:21→15:22)
[2019-10-30] MEDS: Docusate CAP* 100 MG PO SCH ×2 (08:21→22:31)
[2019-10-30] MEDS: Methocarbamol TAB* 500 MG PO PRN ×2 (08:23→15:20)
--- NOTE | 2019-10-30 10:06 | PN ---
Progress Note Date of Service: 10/30/19 Note: STEPHANIE LIN was visited. Nursing and therapy notes read and reviewed. No chest pain, shortness of breath or abdominal pain. She was able to fall asleep without oxycodone last night, but took it in the middle of the night when she was aching after transfer to [facility]. Current Medications: Active Medications Generic Name Dose Route Start Last Admin Trade Name Freq PRN Reason Stop Dose Admin Acetaminophen 650 mg 10/21/19 12:06 10/30/19 08:21 Tylenol Tab* PO 650 mg Q6H PRN Administration MILD PAIN or TEMP > 100.4 Calcium Carbonate 500 mg 10/21/19 19:04 10/21/19 19:17 Tums* PO 500 mg Q4H PRN Administration INDIGESTION Docusate Sodium 100 mg 10/21/19 21:00 10/30/19 08:21 Colace Cap* PO 100 mg BID ASHLEY Administration Enoxaparin Sodium 30 mg 10/21/19 21:00 10/30/19 08:18 Lovenox(*) SUBCUT 30 mg Q12H ASHLEY Administration Levothyroxine Sodium 12.5 mcg 10/22/19 06:00 10/30/19 05:35 Synthroid Tab* PO 12.5 mcg DAILY@0600 ASHLEY Administration Magnesium Hydroxide 30 ml 10/21/19 12:06 10/23/19 18:11 Milk Of Magnesia Liq* PO 30 ml Q6H PRN Administration CONSTIPATION Methocarbamol 750 mg 10/22/19 10:48 10/30/19 08:23 Robaxin Tab* PO 750 mg QID PRN Administration SPASMS - MUSCLE Ondansetron HCl 4 mg 10/23/19 09:16 Zofran Odt Tab* SL Q6H PRN NAUSEA/VOMITING Oxycodone HCl 5 mg 10/28/19 14:23 Roxycodone Tab* PO Q4H PRN PAIN - MODERATE Oxycodone HCl 10 mg 10/28/19 14:23 10/30/19 02:32 Roxycodone Tab* PO 10 mg Q4H PRN Administration PAIN - SEVERE Senna 2 tab 10/21/19 12:06 10/27/19 20:53 Senokot 8.6 Mg Tab* PO 2 tab BEDTIME PRN Administration CONSTIPATION Vital Signs: Vital Signs Temp Pulse Resp BP Pulse Ox 98 F 74 18 94/54 95 10/30/19 05:27 10/30/19 05:27 10/30/19 08:23 10/30/19 06:10 10/30/19 08:00 Exam: GENERAL: no acute distress. alert and appropriate. LUNGS: clear to auscultation bilaterally. HEART: regular rate and rhythm. ABDOMEN: + BS, soft, non-tender, non-distended. EXTREMITIES: No edema SKIN: External fixator across pelvis. Pin sites clean and intact. [place] to left hip intact. NEUROLOGIC: Sensation intact bilateral LE. Motor 5/5 bilateral toes/ankles. RLE knee and hip motor testing limited by pain. Assessment/Plan: 59yo woman with Left acetabulum, left sacral and bilateral pubic rami fractures. 1. Pelvic and left acetabular and sacrum fractures: External fixator. Pin care. NWB LLE. WBAT RLE. f/u with Dr. Wallace at [facility] on 11/02. PT/OT. 2. Analgesia: tylenol and oxycodone prn. methocarbamol prn for spasms. 3. Nausea: zofran prn. 4. DVT prophylaxis: lovenox. Teach self administration or train her . 5. Acute post-op anemia and thrombocytopenia: thrombocytopenia reasolvd. s/p 1u pRBCs on acute service 10/19/2019. Hb stable. 6. Hypothyroidism: levothyroxine 7. Advanced directives: full code. 8. Estimated LOS: 11/12/2019 10/30/19 10:05
[2019-10-31] MEDS: oxyCODONE TAB* 5 MG TAB PO PRN ×2 (02:38→20:50)
[2019-10-31] MEDS: Levothyroxine TAB* 25 MCG TAB PO SCH (06:14)
[2019-10-31] MEDS: Acetaminophen TAB* 325 MG PO PRN ×2 (08:23→15:34)
[2019-10-31] MEDS: Docusate CAP* 100 MG PO SCH ×2 (08:23→20:50)
[2019-10-31] MEDS: Methocarbamol TAB* 500 MG PO PRN ×2 (08:23→15:35)
--- NOTE | 2019-10-31 08:55 | PN ---
Progress Note Date of Service: 10/31/19 Note: STEPHANIE LIN was visited. Nursing notes read and reviewed. Pt is concerned about travel for her appt on Friday as she is susceptible to motion sickness. She has used OTC dramamine in the past. No chest pain, shortness of breath or abdominal pain. Current Medications: Active Medications Generic Name Dose Route Start Last Admin Trade Name Freq PRN Reason Stop Dose Admin Acetaminophen 650 mg 10/21/19 12:06 10/30/19 15:22 Tylenol Tab* PO 650 mg Q6H PRN Administration MILD PAIN or TEMP > 100.4 Calcium Carbonate 500 mg 10/21/19 19:04 10/21/19 19:17 Tums* PO 500 mg Q4H PRN Administration INDIGESTION Docusate Sodium 100 mg 10/21/19 21:00 10/31/19 08:23 Colace Cap* PO 100 mg BID ASHLEY Administration Enoxaparin Sodium 30 mg 10/21/19 21:00 10/30/19 22:33 Lovenox(*) SUBCUT 30 mg Q12H ASHLEY Administration Levothyroxine Sodium 12.5 mcg 10/22/19 06:00 10/31/19 06:14 Synthroid Tab* PO 12.5 mcg DAILY@0600 ASHLEY Administration Magnesium Hydroxide 30 ml 10/21/19 12:06 10/23/19 18:11 Milk Of Magnesia Liq* PO 30 ml Q6H PRN Administration CONSTIPATION Methocarbamol 750 mg 10/22/19 10:48 10/31/19 08:23 Robaxin Tab* PO 750 mg QID PRN Administration SPASMS - MUSCLE Ondansetron HCl 4 mg 10/23/19 09:16 Zofran Odt Tab* SL Q6H PRN NAUSEA/VOMITING Oxycodone HCl 5 mg 10/28/19 14:23 Roxycodone Tab* PO Q4H PRN PAIN - MODERATE Oxycodone HCl 10 mg 10/28/19 14:23 10/31/19 02:38 Roxycodone Tab* PO 10 mg Q4H PRN Administration PAIN - SEVERE Senna 2 tab 10/21/19 12:06 10/27/19 20:53 Senokot 8.6 Mg Tab* PO 2 tab BEDTIME PRN Administration CONSTIPATION Vital Signs: Vital Signs Temp Pulse Resp BP Pulse Ox 98.5 F 54 18 95/56 93 10/31/19 06:25 10/31/19 06:25 10/31/19 08:23 10/31/19 06:25 10/31/19 06:25 Exam: GENERAL: no acute distress. alert and appropriate. LUNGS: clear to auscultation bilaterally. HEART: regular rate and rhythm. ABDOMEN: + BS, soft, non-tender, non-distended. EXTREMITIES: No edema SKIN: External fixator across pelvis. Pin sites clean and intact. [place] to left hip intact. NEUROLOGIC: Sensation intact bilateral LE. Motor 5/5 bilateral toes/ankles. RLE knee and hip motor testing limited by pain. Assessment/Plan: 59yo woman with Left acetabulum, left sacral and bilateral pubic rami fractures. 1. Pelvic and left acetabular and sacrum fractures: External fixator. Pin care. NWB LLE. WBAT RLE. f/u with Dr. Wallace at [facility] on 11/02. PT/OT. 2. Analgesia: tylenol and oxycodone prn. methocarbamol prn for spasms. 3. Nausea/Motion sickness: zofran prn. Will order scopolamine patch today to make sure she tolerates it. It can be removed after she returns from [facility] Friday. 4. DVT prophylaxis: lovenox. Teach self administration or train her . 5. Acute post-op anemia and thrombocytopenia: thrombocytopenia reasolvd. s/p 1u pRBCs on acute service 10/19/2019. Hb stable. 6. Hypothyroidism: levothyroxine 7. Advanced directives: full code. 8. Estimated LOS: 11/12/2019 10/31/19 08:54
[2019-10-31] MEDS ORDERED: Scopolamine 1.5 mg* PATCH TRANSDERM SCH (09:00)
[2019-10-31] MEDS: Enoxaparin(*) 30 MG/0.3 ML SYR SUBCUT SCH ×2 (10:05→20:51)
[2019-10-31] MEDS: Senna TAB 8.6 mg* TAB PO PRN (20:50)
[2019-11-01] MEDS: Levothyroxine TAB* 25 MCG TAB PO SCH (05:18)
[2019-11-01] MEDS: Docusate CAP* 100 MG PO SCH ×2 (07:40→21:43)
[2019-11-01] MEDS: Methocarbamol TAB* 500 MG PO PRN ×2 (07:40→21:43)
[2019-11-01] MEDS: Acetaminophen TAB* 325 MG PO PRN (07:41)
[2019-11-01] MEDS: Enoxaparin(*) 30 MG/0.3 ML SYR SUBCUT SCH ×2 (09:04→21:45)
--- NOTE | 2019-11-01 18:29 | PN ---
Progress Note Date of Service: 11/01/19 Note: STEPHANIE LIN was visited. Therapy notes read and reviewed. She has a follow up appointment at [facility] tomorrow morning Current Medications: Active Medications Generic Name Dose Route Start Last Admin Trade Name Freq PRN Reason Stop Dose Admin Acetaminophen 650 mg 10/21/19 12:06 11/01/19 07:41 Tylenol Tab* PO 650 mg Q6H PRN Administration MILD PAIN or TEMP > 100.4 Calcium Carbonate 500 mg 10/21/19 19:04 10/21/19 19:17 Tums* PO 500 mg Q4H PRN Administration INDIGESTION Docusate Sodium 100 mg 10/21/19 21:00 11/01/19 07:40 Colace Cap* PO 100 mg BID ASHLEY Administration Enoxaparin Sodium 30 mg 10/21/19 21:00 11/01/19 09:04 Lovenox(*) SUBCUT 30 mg Q12H ASHLEY Administration Levothyroxine Sodium 12.5 mcg 10/22/19 06:00 11/01/19 05:18 Synthroid Tab* PO 12.5 mcg DAILY@0600 ASHLEY Administration Magnesium Hydroxide 30 ml 10/21/19 12:06 10/23/19 18:11 Milk Of Magnesia Liq* PO 30 ml Q6H PRN Administration CONSTIPATION Methocarbamol 750 mg 10/22/19 10:48 11/01/19 07:40 Robaxin Tab* PO 750 mg QID PRN Administration SPASMS - MUSCLE Ondansetron HCl 4 mg 10/23/19 09:16 Zofran Odt Tab* SL Q6H PRN NAUSEA/VOMITING Oxycodone HCl 5 mg 10/28/19 14:23 10/31/19 20:50 Roxycodone Tab* PO 5 mg Q4H PRN Administration PAIN - MODERATE Oxycodone HCl 10 mg 10/28/19 14:23 10/31/19 02:38 Roxycodone Tab* PO 10 mg Q4H PRN Administration PAIN - SEVERE Pharmacy Profile Note 1 note 11/03/19 09:00 Scopolamine Patch Remove* PATCH OFF Q72H ASHLEY Scopolamine 1 patch 10/31/19 09:00 10/31/19 09:57 Transderm-Scop 1.5 Mg Patch* TRANSDERM 11/02/19 23:59 1 patch Q72H ASHLEY Administration Senna 2 tab 10/21/19 12:06 10/31/19 20:50 Senokot 8.6 Mg Tab* PO 2 tab BEDTIME PRN Administration CONSTIPATION Vital Signs: Vital Signs Temp Pulse Resp BP Pulse Ox 97.9 F 68 18 101/61 98 11/01/19 16:12 11/01/19 16:12 11/01/19 18:07 11/01/19 16:12 11/01/19 18:07 Exam: GENERAL: no acute distress. alert and appropriate. LUNGS: clear to auscultation bilaterally. HEART: regular rate and rhythm. ABDOMEN: + BS, soft, non-tender, non-distended. EXTREMITIES: No edema SKIN: External fixator across pelvis. Pin sites clean and intact. [place] to left hip intact. NEUROLOGIC: Sensation intact bilateral LE. Motor 5/5 bilateral toes/ankles. RLE knee and hip motor testing limited by pain. Assessment/Plan: 59yo woman with Left acetabulum, left sacral and bilateral pubic rami fractures. 1. Pelvic and left acetabular and sacrum fractures: External fixator. Pin care. NWB LLE. WBAT RLE. f/u with Dr. Wallace at [facility] on 11/02. PT/OT. 2. Analgesia: tylenol and oxycodone prn. methocarbamol prn for spasms. 3. Nausea/Motion sickness: zofran prn. scopolamine patch for now 4. DVT prophylaxis: lovenox. Teach self administration or train her . 5. Acute post-op anemia and thrombocytopenia: Platelets normal. Hb stable. 6. Hypothyroidism: levothyroxine 7. Advanced directives: full code. 8. Estimated LOS: 11/12/2019 11/01/19 18:30 11/01/19 18:30 11/01/19 18:31
[2019-11-01] MEDS: oxyCODONE TAB* 5 MG TAB PO PRN (21:43)
[2019-11-02] MEDS: Levothyroxine TAB* 25 MCG TAB PO SCH (05:47)
[2019-11-02] MEDS: Acetaminophen TAB* 325 MG PO PRN (07:31)
[2019-11-02] MEDS: Docusate CAP* 100 MG PO SCH ×2 (07:31→20:53)
[2019-11-02] MEDS: Methocarbamol TAB* 500 MG PO PRN ×3 (07:35→20:54)
[2019-11-02] MEDS: Enoxaparin(*) 30 MG/0.3 ML SYR SUBCUT SCH ×2 (07:37→20:54)
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
[2019-11-02] MEDS: oxyCODONE TAB* 5 MG TAB PO PRN ×2 (13:02→20:54)
[2019-11-02] MEDS: Magnesium Hydroxide LIQ* 30 ML UDC PO PRN (16:30)
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
[2019-11-03] MEDS: Levothyroxine TAB* 25 MCG TAB PO SCH (06:02)
[2019-11-03] MEDS ORDERED: Scopolamine PATCH Remove* 1 NOTE MISC PATCH OFF SCH (09:00)
[2019-11-03] MEDS: Acetaminophen TAB* 325 MG PO PRN ×2 (09:16→17:07)
[2019-11-03] MEDS: Docusate CAP* 100 MG PO SCH ×2 (09:17→20:47)
[2019-11-03] MEDS: Enoxaparin(*) 30 MG/0.3 ML SYR SUBCUT SCH ×2 (09:17→20:48)
[2019-11-03] MEDS: Methocarbamol TAB* 500 MG PO PRN (17:06)
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
[2019-11-03] MEDS: oxyCODONE TAB* 5 MG TAB PO PRN (22:06)
[2019-11-04] MEDS: Levothyroxine TAB* 25 MCG TAB PO SCH (06:10)
[2019-11-04] MEDS: Methocarbamol TAB* 500 MG PO PRN ×2 (08:32→22:37)
[2019-11-04] MEDS: Docusate CAP* 100 MG PO SCH ×2 (08:33→21:39)
[2019-11-04] MEDS: Enoxaparin(*) 30 MG/0.3 ML SYR SUBCUT SCH ×2 (08:33→21:35)
[2019-11-04] MEDS: Acetaminophen TAB* 325 MG PO PRN ×2 (08:33→22:39)
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
[2019-11-04] MEDS: oxyCODONE TAB* 5 MG TAB PO PRN (21:39)
[2019-11-05] MEDS: Levothyroxine TAB* 25 MCG TAB PO SCH (06:00)
[2019-11-05 06:19] VITALS: BP 95/54
[2019-11-05 06:47] LABS: ABS Eosinophils 0.2 10^3/ul (0-0.6); ABS Lymphocytes 1.4 10^3/ul (1.0-4.8); ABS Monocytes 0.3 10^3/ul (0-0.8); ABS Neutrophils 1.6 10^3/ul (1.5-7.7); Eosinophil % 5.6 %; Hematocrit 28 % (35-47); Hemoglobin 9.5 g/dL (12.0-16.0); Lymphocyte % 38.6 %; Mean Corpuscular HGB Conc 34 g/dL (31-36); Mean Corpuscular Hemoglobin 31 pg (27-31); Mean Corpuscular Volume 93 fL (80-97); Mean Platelet Volume 7.9 fL (7.4-10.4); Nucleated Red Blood Cells % 0.1; Platelet Count 318 10^3/uL (150-450); Red Blood Count 3.05 10^6 /uL (3.70-4.87); Red Cell Distribution Width 17 % (10-15); White Blood Count 3.5 10^3/uL (3.5-10.8)
[2019-11-05 07:06] LABS: Albumin 3.2 g/dL (3.2-5.2); Albumin/Globulin Ratio 0.9 (1-3); BUN/Creatinine Ratio 13.6 (8-20); Calcium 8.6 mg/dL (8.6-10.3); EGFR African American 110.5 (>60); EGFR Non-African American 91.4 (>60); Globulin 3.5 g/dL (2-4); Total Bilirubin 0.5 mg/dL (0.2-1.0); Total Protein 6.7 g/dL (6.4-8.9)
[2019-11-05] MEDS: Acetaminophen TAB* 325 MG PO PRN (07:37)
[2019-11-05] MEDS: Docusate CAP* 100 MG PO SCH (07:37)
[2019-11-05] MEDS: Methocarbamol TAB* 500 MG PO PRN ×2 (07:38→11:16)
[2019-11-05] MEDS: Enoxaparin(*) 30 MG/0.3 ML SYR SUBCUT SCH (07:39)
[2019-11-05] MEDS: oxyCODONE TAB* 5 MG TAB PO PRN (11:15)
--- NOTE | 2019-11-06 12:50 | DS ---
DISCHARGE SUMMARY: DATE OF ADMISSION: 10/21/19 DATE OF DISCHARGE: 11/05/19 DISCHARGE DIAGNOSES: 1. Left acetabular fracture. 2. Left sacral fracture. 3. Bilateral superior and inferior pubic rami fractures. 4. Hypothyroidism. HISTORY OF PRESENT ILLNESS AND HOSPITAL COURSE: For complete history of the events leading up to her rehab stay, please see the history and physical dictated by me on 10/21/19. While on the rehab unit, the patient was largely stable from a medical point of view. She was maintained on Lovenox for DVT prophylaxis. Her pin sites of her external fixator were cleaned with half- strength hydrogen peroxide and the sites themselves remained in good shape. The patient did have postop thrombocytopenia, which resolved. She had postop anemia, but her hemoglobin and hematocrit remained stable in the 8 and 24 range. By the time of discharge, her hemoglobin was 9.5 and hematocrit was 28. Platelets were 318 at discharge. The patient otherwise was medically stable. She was seen by both Physical and Occupational Therapy and made good gains with both disciplines. With physical therapy at the time of admission, the patient was dependent for transfers. She was unable to hop or ambulate. She was able to propel her wheelchair with min assist. By the time of discharge, the patient was supervision for transfers, supervision hopping up to 25 feet. She was supervision for getting in and out of the car. With occupational therapy at the time of admission, the patient required supervision for upper body dressing, max assist for lower body dressing, max assist for donning and doffing footwear, max assist for toileting, mod assist for toilet transfers. By the time of discharge, she was supervision with all activities. Her came in for family training prior to discharge. He felt comfortable in taking her home. The patient was discharged home with her on 11/05/19. DISCHARGE DIET: Regular. DISCHARGE MEDICATIONS: 1. Lovenox 30 mg subcutaneously every 12 hours. 2. Synthroid 12.5 mcg daily. 3. Methocarbamol 750 mg 4 times a day as needed. 4. Oxycodone 5 mg every 4 hours as needed. DISPOSITION: Home. CONDITION AT DISCHARGE: Good. ACTIVITY RESTRICTIONS AT DISCHARGE: She was nonweightbearing on her left leg. FOLLOWUP: The patient will follow up with her orthopedic surgeon, Dr. Jean Carlos Wallace at [facility]. SERVICES AFTER DISCHARGE: Through visiting nurse service, she will have home nursing and home physical therapy. [id number]/CPS #: [id number] MARTIN
== END 2019-11-05 11:30 | disposition home or self-care (01) | DRG 860 ==
LOC: PMRU 12:04
PROVIDERS: ADMIT Physical Medicine & Rehabilitation; ATTEND Physical Medicine & Rehabilitation
PROC: F07Z5ZZ Bed Mobility Treatment (ICD-10-PCS; principal; 2019-10-21)
PROC: F07Z9ZZ Gait Training/Functional Ambulation Treatment (ICD-10-PCS; 2019-10-21)
PROC: F07Z8ZZ Transfer Training Treatment (ICD-10-PCS; 2019-10-21)
PROC: F08Z0ZZ Bathing/Showering Techniques Treatment (ICD-10-PCS; 2019-10-21)
PROC: F08Z1ZZ Dressing Techniques Treatment (ICD-10-PCS; 2019-10-21)
PROC: F08Z2ZZ Grooming/Personal Hygiene Treatment (ICD-10-PCS; 2019-10-21)
DX: S32.402D Unspecified fracture of left acetabulum, subsequent encounter for fracture with routine healing (principal); D62 Acute posthemorrhagic anemia; S32.82XD Multiple fractures of pelvis without disruption of pelvic ring, subsequent encounter for fracture with routine healing; S32.10XD Unspecified fracture of sacrum, subsequent encounter for fracture with routine healing; V48.4XXD Person boarding or alighting a car injured in noncollision transport accident, subsequent encounter; E03.9 Hypothyroidism, unspecified; Z79.01 Long term (current) use of anticoagulants; Z79.899 Other long term (current) drug therapy; Z47.89 Encounter for other orthopedic aftercare; D69.59 Other secondary thrombocytopenia; R42 Dizziness and giddiness; R11.0 Nausea
CPT/HCPCS: 36415; 80053; 85025; 90686; A9270-GY; J1650